=== PATIENT | female | born 1975 | race Two or more races ===

== ENCOUNTER 2018-12-09 01:00 | Emergency (ER) | payer OTHER ==
[~2018-12-09] VITALS: Ht 165.1 cm; Wt 105.7 kg
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
[2018-12-09] MEDS ORDERED: Tetanus/Diptheria/Pertussis IM ONE (01:15)
[2018-12-09] MEDS ORDERED: Bacitracin Oint UD TOPIC ONE (01:15)
[2018-12-09 01:16] VITALS: BP 115/77
--- NOTE | 2018-12-09 01:30 | NUR ---
ED Nurse Note: WOUND CLEANED AND DRESSING APPLIED. PT TOLERATED WELL.
--- NOTE | 2018-12-09 01:40 | NUR ---
ED Nurse Note: [employer] AT THE BEDSIDE FOR POLICE REPORT.
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
[2018-12-09] MEDS ORDERED: IBUPROFEN600 MG ORAL (02:09)
[2018-12-09 02:20] VITALS: BP 118/73
--- NOTE | 2018-12-09 02:20 | NUR ---
ED Nurse Note: pt cleared to be d/c per ERMD, pt discharge and aftercare instruction provided w/ prescription, pt education done via discussion and handout, pt advised to follow up with pcp or return to ed if changes in condition, vss, ambulatory w/ steady gait, cane provided, pt reports she is taking taxi, left w/ all belongings.
--- NOTE | 2018-12-09 10:36 | Diagnostic Imaging Report ---
Indication: Pain Knee pain/trauma 3 views of the right knee were obtained. Findings: No acute fracture, malalignment, or joint effusion are identified. Impression: Negative for acute findings.
== END 2018-12-09 02:20 | disposition home or self-care (01) ==
LOC: EDBD 01:00 → EMR 01:30
DX: S80.211A Abrasion, right knee, initial encounter (principal); S80.01XA Contusion of right knee, initial encounter; M54.9 Dorsalgia, unspecified; X58.XXXA Exposure to other specified factors, initial encounter; Y92.9 Unspecified place or not applicable; Z88.6 Allergy status to analgesic agent; Z85.41 Personal history of malignant neoplasm of cervix uteri; F32.9 Major depressive disorder, single episode, unspecified
CPT/HCPCS: 90471; 90715; 99283